=== PATIENT | female | born 1965 | race Caucasian/White ===

== ENCOUNTER → 2017-01-27 | Outpatient (CLI) | payer BC ==
[2017-01-27 13:09] LABS: Potassium 4.5 mmol/L (3.5-5.1)
== END ==
LOC: LABWHC1 12:24
PROVIDERS: ATTEND Orthopaedic Surgery
DX: Z01.818 Encounter for other preprocedural examination (principal); M19.032 Primary osteoarthritis, left wrist
CPT/HCPCS: 36415; 80051

== ENCOUNTER → 2018-07-11 | Outpatient (CLI) | payer BC ==
--- NOTE | 2018-07-12 12:05 | MM ---
Reason for exam: screening (asymptomatic). Last mammogram was performed 3 years and 3 months ago. History: Family history of breast cancer in paternal aunt. Benign excisional biopsy of the left breast, 2002. Benign excisional biopsy of the left breast, December 22, 2001. Benign excisional biopsy of the right breast, July 20, 2001. Physical Findings: A clinical breast exam by your physician is recommended on an annual basis and results should be correlated with mammographic findings. MG Screening Mammo w CAD Bilateral CC and MLO view(s) were taken. Prior study comparison: March 26, 2015, bilateral MG diagnostic mammo w CAD [facility]. October 16, 2013, bilateral digital screening mammo w/CAD. There are scattered fibroglandular densities. Stable benign calcifications. There is no discrete abnormality. No significant changes when compared with prior studies. ASSESSMENT: Benign, BI-RAD 2 RECOMMENDATION: Routine screening mammogram of both breasts in 1 year.
== END | disposition home or self-care (01) ==
LOC: RADMAMWWP 10:44
PROVIDERS: ATTEND Family Medicine
DX: Z12.31 Encounter for screening mammogram for malignant neoplasm of breast (principal)
CPT/HCPCS: 77067

== ENCOUNTER 2018-11-17 09:09 | Day surgery (SDC) | payer BC ==
[2018-11-15 16:55] VITALS: BMI 42.8
[2018-11-17 09:38] VITALS: RESP 16; TEMP 98.3
[2018-11-17] MEDS ORDERED: LACTATED RINGERS 1,000 ML IV ONE (09:51)
[2018-11-17] MEDS ORDERED: LIDOCAINE 1% 20 ML VIAL (10MG/ML) FOR IV START INTRADERMA ONE (09:51)
[2018-11-17] MEDS ORDERED: fentaNYL (PF) 50 MCG/ML 2 ML AMP ONE (10:24)
[2018-11-17] MEDS ORDERED: MIDAZOLAM 2 MG/2 ML VIAL ONE (10:24)
[2018-11-17] MEDS ORDERED: PROPOFOL 10 MG/ML 20 ML VIAL IV ONE (10:24)
--- NOTE | 2018-11-17 10:47 | P.PCN ---
Date of Procedure: 11/17/18 Procedure(s) Performed: BRIEF HISTORY: Patient is a 53-year-old, pleasant, white female, scheduled for an upper endoscopy as a part of evaluation of intermittent episodes of epigastric pain. She has history of gastric bypass surgery in July 2018 had an upper endoscopy that revealed a gastric anastomotic ulcer. Since has been on Prilosec 20 mg daily and is scheduled for repeat upper endoscopy to evaluate for ulcer healing. PROCEDURE PERFORMED: Esophagogastroduodenoscopy with biopsy. PREOPERATIVE DIAGNOSIS: Follow-up of gastric anastomotic ulcer. IV sedation per anesthesia. PROCEDURE: After informed consent was obtained, the patient was brought into the endoscopy unit. IV sedation was administered by Anesthesia under continuous monitoring. Initially the Olympus GIF-140 video endoscope was inserted into the mouth. Esophagus intubated without any difficulty. It was gradually advanced into the gastric pouch. The anastomosis appeared narrowed. With gentle pressure I was able to advanced into the Mario-en-Y anastomosis and there was a large superficial anastomotic ulcer once again seen measuring about 2.5 cm and multiple biopsies were done from this area. The scope was advanced into the The s scope was advanced into the proximal jejunum which appeared normal. Scope was then withdrawn into the esophagus. The GE junction was located at 35 cm from the incisors. The esophagus appeared normal. There were no erosions or ulcerations seen and the patient tolerated the procedure well. IMPRESSION: 1 2-2.5 cm superficial anastomotic ulcer at the Mario-en-Y with no active bleeding. Status post multiple biopsies. 2. Mild narrowing of the Mario-en-Y anastomosis.. RECOMMENDATIONS: The findings of this examination were discussed with the patient as well as a family. She was advised to follow with the biopsy results. She will continue with Prilosec 20 mg twice daily and will plan a repeat upper endoscopy in 3-4 months.
[2018-11-17 11:37] VITALS: BP 113/58; PULSE 77
== END 2018-11-17 11:38 | disposition home or self-care (01) ==
LOC: ORWHC2ENDO 09:09
PROVIDERS: ATTEND Internal Medicine Gastroenterology
DX: K28.9 Gastrojejunal ulcer, unspecified as acute or chronic, without hemorrhage or perforation (principal); K29.50 Unspecified chronic gastritis without bleeding; Z98.84 Bariatric surgery status; K21.9 Gastro-esophageal reflux disease without esophagitis; I10 Essential (primary) hypertension; E78.5 Hyperlipidemia, unspecified; J44.9 Chronic obstructive pulmonary disease, unspecified; E07.9 Disorder of thyroid, unspecified; F17.200 Nicotine dependence, unspecified, uncomplicated; G47.33 Obstructive sleep apnea (adult) (pediatric); Z79.890 Hormone replacement therapy; Z79.899 Other long term (current) drug therapy; Z88.0 Allergy status to penicillin
CPT/HCPCS: 88305; 43239; J2250; J3010; J2704

== ENCOUNTER → 2019-01-02 | Outpatient (CLI) | payer BC ==
--- NOTE | 2019-01-02 15:59 | CONS ---
CONSULTATION REASON FOR CONSULTATION: Sleep apnea, difficulty getting into sleep. HISTORY OF PRESENT ILLNESS: This is a 53-year-old female patient who was diagnosed having obstructive sleep apnea. She is maintained on CPAP pressure of 9 cm of water. Recently she has noticed that she is unable to go sleep. 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 She is going to bed around 3:00 am, waking up between 9:00-10 a.m. in the morning. She is going to school and on the days that she has to go to school she wakes up at 9:00 am otherwise she sleeps longer than that and she will get up at 11:00 am in the morning. Upon arousal in the morning, she feels refreshed. She is using her CPAP overnight. Going to bed earlier at around midnight would not work. She would not be able to initiate sleep and she will be in and out of her bedroom throughout the night. She had a lot of anxiety as the patient is losing her for brain cancer and he has been diagnosed having glioblastoma multiforme. The patient herself is compliant with her CPAP. She states that her CPAP machine is quite comfortable. She is using a full-face mask. No apneas at night time. After going to sleep she does not wake up at all. Skokie score is at 1. Drinks 4 cups of coffee during the day. Weight is up by around 15 pounds over the past 1 year. PAST MEDICAL HISTORY: Hypothyroidism, obstructive sleep apnea, chronic anxiety, hypertension, asthma and reflux. PAST SURGICAL HISTORY: . Knee surgery. Gastric bypass surgery DRUG ALLERGIES: TO PENICILLIN. OUTPATIENT MEDICATION LIST: Includes levothyroxine 100 mcg p.o. daily. Effexor 150 mg p.o. daily, Atarax 25 mg twice a day. Loratadine 10 mg p.o. daily. hydrochlorothiazide 2.5/6.25 mg 1 tablet a day. Trazodone 50 mg at bedtime. Singulair 10 mg p.o. daily. Advair 250-50 1 puff twice a day, omeprazole over the counter. SOCIAL HISTORY: Nonsmoker. No history of alcohol. No history of IV drugs. FAMILY HISTORY: Noncontributory. REVIEW OF SYSTEMS: 12-point review of system was done. Positive findings are mentioned above in the history of present illness. No snoring while on the CPAP machine. No choking or gasping for air. No nocturia. No grinding of the teeth. No restlessness of lower extremities. No panic. No depression. PHYSICAL EXAMINATION: BP is 137/85, pulse 64, respirations 16, temperature 97.9, saturation 99% on room air. Weight is , height is 5 feet 7 inches, neck size 14.5 inches, BMI 43.3. Skokie Score is at 1. General appearance: Calm and comfortable. Head, atraumatic. Normocephalic. NECK: Supple. There is no JVD. No goiter or neck masses. Mallampati class IV. LUNGS: Clear to auscultation. HEART: Sounds regular rate and rhythm. Normal S1, S2. No S3. No murmurs. ABDOMEN: Soft, nontender. No organomegaly. EXTREMITIES: No edema. No cyanosis or clubbing. IMPRESSION: 1. Delayed sleep phase syndrome. 2. Obstructive sleep apnea currently on CPAP pressure of 11 cm of water. 3. Chronic anxiety. 4. Hypothyroidism. 5. Hypertension. 6. Bronchial asthma. PLAN: 1. The patient's sleep apnea is effectively treated. Would like to see her CPAP machine at a later stage to ensure that she is compliant and she is well treated. 2. The patient has delayed sleep phase syndrome. She would like to go back to her usual sleep hours. I have made recommendations to be exposed to bright light in the sales producer hours. Would like to move her waking up time by 1 hour initially at 8:00 am and later on to 7:00 am and this will hopefully switch her biologic o'clock over the next few weeks to move her to 1:00 am as being the time to go to bed. She will use the relaxation techniques. She will continue using trazodone at bedtime. Implement good sleep hygiene measures, stimulus control. No need for any sleeping aid at this point in time. We will do this behavioral modifications. She will see me back in 3 months time. Anticipate some improvement in her sleep schedule with the above mentioned recommendations. MMISSAL / IJN: [id number] / KG
== END ==
LOC: SLEEP 11:31
PROVIDERS: ATTEND Internal Medicine Critical Care Medicine
DX: G47.33 Obstructive sleep apnea (adult) (pediatric) (principal); F41.9 Anxiety disorder, unspecified; E03.9 Hypothyroidism, unspecified; I10 Essential (primary) hypertension; J45.909 Unspecified asthma, uncomplicated; Z99.89 Dependence on other enabling machines and devices; Z88.0 Allergy status to penicillin; Z79.899 Other long term (current) drug therapy; Z79.51 Long term (current) use of inhaled steroids
CPT/HCPCS: 99211

== ENCOUNTER 2019-09-20 10:39 | Day surgery (SDC) | payer BC ==
[2019-09-19 09:26] VITALS: BMI 41.3
[~2019-09-20 10:39] MED LIST: DEXAMETHASONE SOD PHOSPHATE 10 MG/ML 1 ML VIAL IV ONE; LACTATED RINGERS 1,000 ML IV SCH; LIDOCAINE 1% 20 ML VIAL (10MG/ML) FOR IV START INTRADERMA PRN; ONDANSETRON 4 MG/2 ML VIAL IVP ONE
[2019-09-20 11:12] VITALS: TEMP 99.2
[2019-09-20] MEDS ORDERED: LIDOCAINE 1% INJ 10MG/ML (20 ML MDV) ONE (11:47)
[2019-09-20] MEDS ORDERED: KETAMINE 10 MG/ML 20 ML VIAL ONE (11:47)
[2019-09-20] MEDS ORDERED: PROPOFOL 10 MG/ML 20 ML VIAL IV ONE (11:47)
--- NOTE | 2019-09-20 12:03 | P.PCN ---
Date of Procedure: 09/20/19 Procedure(s) Performed: BRIEF HISTORY: Patient is a 53-year-old, pleasant, to female scheduled for an upper endoscopy as a part of follow-up performed gastric anastomotic ulcer when she presented with epigastric pain and nausea vomiting. Since that she has been maintained on Prilosec 20 mg twice daily. She had a repeat upper endoscopy in October 2018 that showed persistence of the ulcer. She was advised to avoid NSAIDs.. She has prior history of gastric bypass surgery in 2008. She is scheduled for an upper endoscopy to document ulcer healing. PROCEDURE PERFORMED: Esophagogastroduodenoscopy with biopsy. PREOPERATIVE DIAGNOSIS: Follow-up gastric anastomotic ulcer. IV sedation per anesthesia. PROCEDURE: After informed consent was obtained, the patient was brought into the endoscopy unit. IV sedation was administered by Anesthesia under continuous monitoring. Initially the Olympus GIF-140 video endoscope was inserted into the mouth. Esophagus intubated without any difficulty. It was gradually advanced into the stomach . There was evidence of gastric bypass surgery noted. The gastric pouch appeared normal. Once again there was evidence of 2 cm anastomotic ulcer identified at the Mario-en-Y anastomosis with no active bleeding. Scope was advanced into the afferent and efferent loops appeared normal. Biopsies were done from the anastomotic ulcer. The scope was then withdrawn into the esophagus. The GE junction was located at 39 cm from the incisors. The esophagus appeared normal. There were no erosions or ulcerations seen and the patient tolerated the procedure well. IMPRESSION: 1. 2 cm persistent gastric anastomotic ulcer at the Mario-en-Y anastomosis. 2. Previous gastric bypass surgery RECOMMENDATIONS: The findings of this examination were discussed with the patient as well as a family. She will continue with Prilosec 20 mg twice daily and avoid NSAIDs. Will plan a repeat upper endoscopy in 6 months.
[2019-09-20 12:19] VITALS: BP 118/67; PULSE 57; RESP 20
== END 2019-09-20 12:29 | disposition home or self-care (01) ==
LOC: ORWHC2ENDO 10:39
PROVIDERS: ATTEND Internal Medicine Gastroenterology
DX: K28.9 Gastrojejunal ulcer, unspecified as acute or chronic, without hemorrhage or perforation (principal); Z88.0 Allergy status to penicillin; Z79.899 Other long term (current) drug therapy; I10 Essential (primary) hypertension; E78.5 Hyperlipidemia, unspecified; Z87.891 Personal history of nicotine dependence; E07.9 Disorder of thyroid, unspecified; K21.9 Gastro-esophageal reflux disease without esophagitis; J45.909 Unspecified asthma, uncomplicated; G47.33 Obstructive sleep apnea (adult) (pediatric); Z99.89 Dependence on other enabling machines and devices; Z79.890 Hormone replacement therapy
CPT/HCPCS: 88305; 43239; J2001; J2704

== ENCOUNTER → 2019-12-06 | Outpatient (CLI) | payer BC ==
[~2019-12-06] MED LIST changes: -DEXAMETHASONE SOD PHOSPHATE 10 MG/ML 1 ML VIAL IV ONE; +IODINE/POTASS IOD (LUGOLS) BOTTLE TOPICAL ONE; -LACTATED RINGERS 1,000 ML IV SCH; -LIDOCAINE 1% 20 ML VIAL (10MG/ML) FOR IV START INTRADERMA PRN; -ONDANSETRON 4 MG/2 ML VIAL IVP ONE
--- NOTE | 2019-12-06 16:01 | NM ---
EXAMINATION TYPE: NM DatScan Brain SPECT DATE OF EXAM: 12/06/2019 COMPARISON: NONE HISTORY: Tremor TECHNIQUE: 10 drops of Lugol's solution was administered 1 hour prior to injection as a thyroid bloc shanita agent. After the administration of 4.3 mCi I-123 Ioflupane DaTscan. Images obtained [address] injection. SPECT images of the brain were acquired with axial and coronal reconstructions. FINDINGS: The axial SPECT images demonstrate normal background activity. Accounting for head tilt, t here appears to be slight asymmetrically blunted comma-shaped appearance of the left corpus striatum. IMPRESSION: Slightly blunted striatal activity on the left may indicate early changes of idiopathic P arkinson's disease or Parkinsonian syndrome.
== END | disposition home or self-care (01) ==
LOC: RADNMMAIN 10:44
PROVIDERS: ATTEND Psychiatry & Neurology Neurology
DX: R90.89 Other abnormal findings on diagnostic imaging of central nervous system (principal); G25.0 Essential tremor
CPT/HCPCS: 78803; A9584

== ENCOUNTER → 2020-06-19 | Outpatient (CLI) | payer BC ==
[2020-06-19 12:35] LABS: Appearance,Urine Clear (Clear); Bilirubin,Urine Negative (Negative); Blood,Urine Negative (Negative); Color,Urine Yellow; Glucose,Urine (UA) Negative (Negative); Ketones,Urine Negative (Negative); Leukocyte Esterase,Urine Negative (Negative); Nitrite,Urine Negative (Negative); Protein,Urine Trace (Negative); Specific Gravity,Urine 1.034 (1.001-1.035)
[2020-06-19 13:57] LABS: HCT 38.8 % (34.0-46.0); HGB 11.5 gm/dL (11.4-16.0); Hypochromasia Marked; MCH 24.5 pg (25.0-35.0); MCHC 29.6 g/dL (31.0-37.0); MCV 82.8 fL (80.0-100.0); Mean Platelet Volume 7.8; Platelet Count 272 k/uL (150-450); RBC 4.69 m/uL (3.80-5.40); RDW 15.9 % (11.5-15.5); WBC 3.6 k/uL (3.8-10.6)
[2020-06-19 14:11] LABS: ALT 12 U/L (4-34); AST 26 U/L (14-36); African American GFR (CKD) >90 (>60 ml/min/1.73 sqM); Albumin 4.4 g/dL (3.5-5.0); Alkaline Phosphatase 57 U/L (38-126); Anion Gap 6 mmol/L; Blood Urea Nitrogen 13 mg/dL (7-17); Calcium 9.3 mg/dL (8.4-10.2); Carbon Dioxide 28 mmol/L (22-30); Chloride 105 mmol/L (98-107); Glucose 90 mg/dL (74-99); Non-African American GFR(CKD) >90 (>60 ml/min/1.73 sqM); Potassium 4.9 mmol/L (3.5-5.1); Sodium 139 mmol/L (137-145); Total Bilirubin 0.4 mg/dL (0.2-1.3); Total Protein 6.9 g/dL (6.3-8.2)
[2020-06-19 14:21] LABS: INR 1.1 (<1.2); Partial Thromboplastin Time 25.8 sec (22.0-30.0); Prothrombin Time 10.8 sec (9.0-12.0)
== END | disposition home or self-care (01) ==
LOC: LABPAT 11:17
PROVIDERS: ATTEND Orthopaedic Surgery Sports Medicine
DX: Z01.818 Encounter for other preprocedural examination (principal); Z01.812 Encounter for preprocedural laboratory examination
CPT/HCPCS: 80053; 81003; 85027; 85610; 85730; 87070

== ENCOUNTER 2020-12-12 10:13 | Day surgery (SDC) | payer BC, OTHER ==
[2020-12-11 12:53] VITALS: BMI 42.2
[~2020-12-12 10:13] MED LIST changes: -IODINE/POTASS IOD (LUGOLS) BOTTLE TOPICAL ONE; +LACTATED RINGERS 1,000 ML IV SCH; +LIDOCAINE 1% (10MG/ML) FOR IV START INTRADERMA PRN
[2020-12-12 10:58] VITALS: TEMP 98.8
[2020-12-12] MEDS ORDERED: PROPOFOL 10 MG/ML 20 ML VIAL IV ONE (11:09)
[2020-12-12] MEDS ORDERED: LIDOCAINE 1% INJ 10MG/ML (20 ML MDV) ONE (11:09)
--- NOTE | 2020-12-12 11:31 | P.PCN ---
Date of Procedure: 12/12/20 Procedure(s) Performed: BRIEF HISTORY: Patient is a 55-year-old, pleasant, white female scheduled for an upper endoscopy as a part of evaluation of persistent epigastric pain for the last 2 months duration. She has history of gastric bypass surgery done in 2018. She had EGD July 2018 and was noted to have Mario-en-Y anastomosis with a 2 cm anastomotic ulceration. His been on Prilosec 20 mg daily since then.. PROCEDURE PERFORMED: Esophagogastroduodenoscopy with biopsy. PREOPERATIVE DIAGNOSIS: Chronic epigastric pain and prior history of gastric anastomotic ulcer. IV sedation per anesthesia. PROCEDURE: After informed consent was obtained, the patient was brought into the endoscopy unit. IV sedation was administered by Anesthesia under continuous monitoring. Initially the Olympus GIF-140 video endoscope was inserted into the mouth. Esophagus intubated without any difficulty. It was gradually advanced into the stomach . There was evidence of gastric bypass surgery with Mario-en-Y anastomosis noted. The previously noted anastomotic ulcer has completely healed. The afferent and efferent loops appeared normal. The scope was withdrawn into the stomach. There was mild gastritis noted in the body the stomach which was biopsied. Rest of the body, cardia and the fundus appeared no rmal. The scope was then withdrawn into the esophagus. The GE junction was located at 35 cm from the incisors. Small hiatal hernia noted. The esophagus appeared normal. There were no erosions or ulcerations seen, biopsies were done from the distal esophagus and the patient tolerated the procedure well. IMPRESSION: 1. Evidence of gastric bypass surgery with Mario-en-Y anastomosis and the previ ously noted anastomotic ulcer has completely healed. 2. Mild gastritis involving the gastric body 3. Small hiatal hernia. RECOMMENDATIONS: The findings of this examination were discussed with the p atient as well as a family. She was advised to follow with the biopsy results. She will continue with Prilosec 20 mg daily and follow antireflux measures..
[2020-12-12 11:33] VITALS: RESP 16
[2020-12-12 11:47] VITALS: BP 136/85; PULSE 55
== END 2020-12-12 12:25 | disposition home or self-care (01) ==
LOC: ORWHC2ENDO 10:13
PROVIDERS: ATTEND Internal Medicine Gastroenterology
DX: K29.50 Unspecified chronic gastritis without bleeding (principal); K21.00 Gastro-esophageal reflux disease with esophagitis, without bleeding; K44.9 Diaphragmatic hernia without obstruction or gangrene; G89.29 Other chronic pain; I10 Essential (primary) hypertension; E78.5 Hyperlipidemia, unspecified; J45.909 Unspecified asthma, uncomplicated; G47.33 Obstructive sleep apnea (adult) (pediatric); E07.9 Disorder of thyroid, unspecified; M19.90 Unspecified osteoarthritis, unspecified site; I73.9 Peripheral vascular disease, unspecified; Z98.84 Bariatric surgery status; Z87.11 Personal history of peptic ulcer disease; Z98.890 Other specified postprocedural states; Z79.899 Other long term (current) drug therapy; Z88.0 Allergy status to penicillin; Z99.89 Dependence on other enabling machines and devices
CPT/HCPCS: 88305; 43239; J2001; J2704

== ENCOUNTER → 2021-02-10 | Outpatient (CLI) | payer BC, OTHER ==
--- NOTE | 2021-02-11 12:11 | MM ---
Reason for exam: screening (asymptomatic). Last mammogram was performed 2 years and 7 months ago. History: Family history of breast cancer in paternal aunt. Benign excisional biopsy of the left breast, 2002. Benign excisional biopsy of the left breast, December 22, 2001. Benign excisional biopsy of the right breast, July 20, 2001. Physical Findings: A clinical breast exam by your physician is recommended on an annual basis and results should be correlated with mammographic findings. MG 3D Screening Mammo W/Cad Bilateral CC and MLO view(s) were taken. Prior study comparison: July 11, 2018, bilateral MG screening mammo w CAD. March 26, 2015, bilateral MG diagnostic mammo w CAD [facility]. There are scattered fibroglandular densities. Finding #1: Architectural distortion in the upper outer quadrant of the left breast consistent with known excisional changes. Finding #2: There are typically benign dystrophic, round calcifications in both breasts. There is no discrete abnormality. ASSESSMENT: Benign, BI-RAD 2 RECOMMENDATION: Routine screening mammogram of both breasts in 1 year.
== END | disposition home or self-care (01) ==
LOC: RADMAMWWP 10:22
PROVIDERS: ATTEND Family Medicine
DX: Z12.31 Encounter for screening mammogram for malignant neoplasm of breast (principal); Z80.3 Family history of malignant neoplasm of breast
CPT/HCPCS: 77063; 77067

== ENCOUNTER → 2022-08-09 | Outpatient (CLI) | payer MEDICARE ==
--- NOTE | 2022-08-09 14:40 | US ---
EXAMINATION TYPE: US venous doppler duplex LE RT DATE OF EXAM: 08/09/2022 2:30 PM COMPARISON: NONE CLINICAL HISTORY: R22.41 Swelling Right leg. calf pain, no h/o dvt SIDE PERFORMED: Right TECHNIQUE: The lower extremity deep venous system is examined utilizing real time linear array sonog thomas with graded compression, doppler sonography and color-flow sonography. VESSELS IMAGED: Common Femoral Vein Deep Femoral Vein Greater Saphenous Vein * Femoral Vein Popliteal Vein Small Saphenous Vein * Proximal Calf Veins (* superficial vessels) Grayscale, color doppler, spectral doppler imaging performed of the deep veins of the lower extremiti es. There is normal flow, compressibility, vascular waveforms. Right Leg: Negative for DVT IMPRESSION: No ultrasound evidence of deep venous thrombosis of the right lower extremity.
== END | disposition home or self-care (01) ==
LOC: RADUSWWP 14:05
PROVIDERS: ATTEND Family Medicine
DX: R22.41 Localized swelling, mass and lump, right lower limb (principal)

== ENCOUNTER → 2022-10-06 | Outpatient (CLI) | payer MEDICARE ==
--- NOTE | 2022-10-07 18:51 | MM ---
Reason for Exam: Screening (asymptomatic). Last mammogram was performed 1 year(s) and 8 month(s) ago. Patient History: Menarche at age 12. First Full-Term at age 28. Postmenopausal. Patient has history of breast feeding. 2002, Benign Excisional Biopsy on the left side. 12/22/2001, Benign Excisional Biopsy on the left side. 07/20/2001, Benign Excisional Biopsy on the right side. Paternal aunt had breast cancer. Risk Values: Zenobia 5 year model risk: 2.1%. NCI Lifetime model risk: 12.8%. Prior Study Comparison: 03/26/2015 Bilateral Diagnostic Mammogram, [facility]. 07/11/2018 Bilateral Screening Mammogram, [facility]. 02/10/2021 Bilateral Screening Mammogram, [facility]. Tissue Density: There are scattered fibroglandular densities. Findings: Analyzed By CAD. Postexcisional changes redemonstrated on both sides. There is a fat necrosis calcification are also unchanged. No significant change from prior exams. Overall Assessment: Benign, BI-RAD 2 Management: Screening Mammogram of both breasts in 1 year. 1. Patient should continue monthly self breast exams. 2. A clinical breast exam by your physician is recommended on an annual basis. 3. This exam should not preclude additional follow-up of suspicious palpable abnormalities. Electronically signed and approved by: Von Deutsch M.D. Radiologist
== END | disposition home or self-care (01) ==
LOC: RADMAMWWP 16:01
PROVIDERS: ATTEND Family Medicine
DX: Z12.31 Encounter for screening mammogram for malignant neoplasm of breast (principal); Z78.0 Asymptomatic menopausal state; Z80.3 Family history of malignant neoplasm of breast
CPT/HCPCS: 77063; 77067

== ENCOUNTER → 2023-09-14 | Outpatient (CLI) | payer MEDICARE ==
[~2023-09-14] MED LIST changes: +IRON SUCROSE 200 MG in SODIUM CHLORIDE 0.9% 100 ML IVPB NR; -LACTATED RINGERS 1,000 ML IV SCH; -LIDOCAINE 1% (10MG/ML) FOR IV START INTRADERMA PRN; +SODIUM CHLORIDE 0.9% 500 ML 500 ML in EMPTY BAG 1 BAG IV PRN
[2023-09-14 10:36] VITALS: BP 131/79; PULSE 72; RESP 16; TEMP 97.9
== END ==
LOC: PROCWHC3 09:47
PROVIDERS: ATTEND Family Medicine
DX: D50.9 Iron deficiency anemia, unspecified (principal)
CPT/HCPCS: 96365; J1756

== ENCOUNTER → 2023-09-27 | Outpatient (CLI) | payer MEDICARE ==
--- NOTE | 2023-09-27 11:17 | CT ---
EXAMINATION TYPE: CT soft tissue neck w con DATE OF EXAM: 09/27/2023 COMPARISON: Ultrasound neck HISTORY: swelling to posterior neck (marked with a BB) CT DLP: 747 mGycm CONTRAST: CT scan of the neck is performed with IV Contrast, patient injected with 100 mL of Isovue 300. Contrast enhanced CT of the neck was performed from the skull base through the lung apices. AIRWAY: The supraglottic, glottic, and subglottic portions of the airway appear patent and free of mass. SALIVARY GLANDS: The submandibular and parotid glands are free of mass or inflammatory process. THYROID GLAND: No nodules or masses seen. LYMPH NODES:. At the site of Clinical concern posterior left neck there is a 7.3 mm lymph node identi fied. This lymph node has decreased in size from ultrasound with prior measurement of 1.5 x 2.3 x 1.1 cm. No adenopathy is seen greater than 1 cm throughout the neck. LUNG APICES: No nodule or mass is seen. OTHER: Vascular structures are patent. No significant degenerative change of the cervical spine. N o abscess seen. IMPRESSION: At the site of Clinical concern posterior left neck there is a 7.3 mm lymph node identified. This lym ph node has decreased in size from ultrasound with prior measurement of 1.5 x 2.3 x 1.1 cm. No adenop athy is seen greater than 1 cm throughout the neck.
== END | disposition home or self-care (01) ==
LOC: RADCTMAIN 09:28
PROVIDERS: ATTEND Otolaryngology
DX: R22.1 Localized swelling, mass and lump, neck (principal); I89.8 Other specified noninfective disorders of lymphatic vessels and lymph nodes
CPT/HCPCS: 70491; Q9967

== ENCOUNTER → 2024-10-05 | Outpatient (CLI) | payer MEDICARE ==
--- NOTE | 2024-10-05 19:24 | CTL ---
EXAMINATION TYPE: CT Low Dose Lung DATE OF EXAM: 10/05/2024 4:35 PM COMPARISON: None. 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 TECHNIQUE: Multiple axial non-contrast scans were obtained from approximately the lung apices through the upper abdomen. Coronal and sagittal reformatted images were obtained. Low dose technique was uti lized. MIP were created on a separate workstation and submitted for review. CT DLP: 94 mGycm, Automated exposure control for dose reduction was used. CT Contrast: Contrast used: None Oral contrast used: None FINDINGS: Lack of intravenous contrast and low dose technique limits the evaluation of the vascular and soft ti ssue structures. LUNGS: No evidence of pulmonary fibrosis. No evidence of focal consolidation, pneumothorax or pleural effusion. Centrilobular emphysema changes. Nodules: RUL: None. RML: None. RLL: 2 mm series 9 image 38 KING: None. LLL: None. AIRWAY: Patent and unremarkable. HEART: Size within normal limits. MEDIASTINUM: No gross evidence of adenopathy. VASCULATURE: No aortic aneurysm. MUSCULOSKELETAL: Moderate disc degeneration changes are present throughout the thoracolumbar spine. SOFT TISSUES/LYMPH NODES: Loop recorder in the left chest wall. LOWER NECK: No significant findings. UPPER ABDOMEN: Postsurgical changes to the upper abdomen stomach. Small hiatal hernia remains. IMPRESSION: 1. No clinically significant pulmonary nodules. 2. Mild emphysema. CT LUNG RAD AND CT CHEST RECOMMENDATION: Lung-Rad 2 Benign Appearance or Behavior: Continue annual sc reening with LDCT in 12 months. S Modifier (other clinically significant findings): None Recommend smoking cessation (if current smoker), or continuation of smoking cessation (if prior smoke r). Annual screening for lung cancer with low-dose computed tomography is recommended in adults ages 55 to 77 years who have a 30 pack-year smoking history and currently smoke or have quit within the pa st 15 years. Screening should be discontinued once a person has not smoked for 15 years or develops a health problem that substantially limits life expectancy or the ability or willingness to have curat ayaka lung surgery. Lung rads 2021 [email or web address] [facility], , 10/05/2024 7:22 PM
== END | disposition home or self-care (01) ==
LOC: RADCTMAIN 15:46
PROVIDERS: ATTEND Family Medicine
DX: Z12.2 Encounter for screening for malignant neoplasm of respiratory organs (principal); J43.2 Centrilobular emphysema; Z87.891 Personal history of nicotine dependence
CPT/HCPCS: 71271

== ENCOUNTER → 2025-03-13 | Outpatient (CLI) | payer MEDICARE ==
--- NOTE | 2025-03-13 13:34 | MM ---
Reason for Exam: Screening (asymptomatic). Last mammogram was performed 2 year(s) and 5 month(s) ago. Patient History: Menarche at age 12. First Full-Term at age 28. Postmenopausal. Patient has history of breast feeding. 2002, Benign Excisional Biopsy on the left side. 12/22/2001, Benign Excisional Biopsy on the left side. 07/20/2001, Benign Excisional Biopsy on the right side. Paternal aunt had breast cancer. Risk Values: Zenobia 5 year model risk: 2.4%. NCI Lifetime model risk: 11.9%. Prior Study Comparison: 07/11/2018 Bilateral Screening Mammogram, [facility]. 02/10/2021 Bilateral Screening Mammogram, [facility]. 10/06/2022 Bilateral MG 3D screening mammo w/cad, [facility]. Tissue Density: There are scattered areas of fibroglandular density. Findings: Analyzed By CAD. Stable distortion upper outer aspect left breast. Large benign appearing dystrophic calcifications bilaterally are redemonstrated. There is no suspicious group of microcalcifications or new suspicious mass in either breast. Overall Assessment: Benign, BI-RAD 2 Management: Screening Mammogram of both breasts in 1 year. . Patient should continue monthly self-breast exams. A clinical breast exam by your physician is recommended on an annual basis. This exam should not preclude additional follow-up of suspicious palpable abnormalities. Note on Zenobia scores and lifetime risk: 1. A Zenobia score greater than 3% is considered moderate risk. If this is the case, consider specialist referral to assess eligibility for a risk reducing agent. 2. If overall lifetime risk for the development of breast cancer is 20% or higher, the patient may qualify for future screening with alternating mammogram and breast MRI. [facility], , 03/13/2025 1:31 PM. Electronically signed and approved by: Adis Rodriguez M.D.
== END | disposition home or self-care (01) ==
LOC: RADMAMWWP 13:05
PROVIDERS: ATTEND Family Medicine
DX: Z12.31 Encounter for screening mammogram for malignant neoplasm of breast (principal); R92.323 Mammographic fibroglandular density, bilateral breasts; R92.1 Mammographic calcification found on diagnostic imaging of breast; Z78.0 Asymptomatic menopausal state; Z80.3 Family history of malignant neoplasm of breast
CPT/HCPCS: 77063; 77067